=== PATIENT | male | born 1990 | race Caucasian/White ===

== ENCOUNTER 2019-11-28 09:54 | Day surgery (SDC) | payer OTHER ==
[~2019-11-28 09:54] MED LIST: Acetaminophen 500 MG TAB PO PRN; Acetaminophen 500 MG TAB PO SCH; Ustekinumab 520 MG in Sodium Chloride 0.9% 250 ML 146 ML IV SCH; diphenhydrAMINE 25 MG CAP PO PRN; diphenhydrAMINE 25 MG CAP PO SCH
[2019-11-28] MEDS ORDERED: Sodium Chloride 0.9% 20 ML ONE (10:20)
[2019-11-28 10:33] VITALS: BP 153/87; TEMP 98.1
== END 2019-11-28 12:53 | disposition home or self-care (01) ==
LOC: ONC/OP 09:54
PROVIDERS: ATTEND Internal Medicine
DX: K51.90 Ulcerative colitis, unspecified, without complications (principal)
CPT/HCPCS: 96413